=== PATIENT | male | born 2000 | race Caucasian/White ===

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

== ENCOUNTER 2022-08-11 21:04 | Emergency (ER) | payer OTHER, SELFPAY ==
[2022-08-11 21:17] VITALS: BP 114/62; PULSE 86; RESP 20; TEMP 36.9; O2SAT 99
--- NOTE | 2022-08-11 23:00 | ED.GENADULT ---
HPI - General Adult General Chief complaint: Allergic Reaction Stated complaint: facial numbness Time Seen by Provider: 08/11/22 22:44 History of Present Illness HPI narrative: Patient is a 22-year-old gentleman who presents the emergency department with chief complaint of facial numbness. The patient reports that he ate sushi and shrimp earlier this evening had a test that he had to turn and and some homework he had to turn down the patient states he took a nap woke up noticed he was breathing fast and then had numbness around his face and mouth the patient states the fingers tip started getting numb while he was breathing fast. The patient noted the symptoms would resolve as he slowed his breathing down. Patient states that currently his symptoms have resolved and is back to normal. Related Data Home Medications Medication Instructions Recorded Confirmed No Home Medications 08/11/22 08/11/22 Allergies Allergy/AdvReac Type Severity Reaction Status Date / Time No Known Allergies Allergy Verified 08/11/22 21:21 Review of Systems Review of Systems: A 10 system review of systems was completed on the patient and is negative except for what is stated in the HPI. Nursing and ancillary documentation was reviewed. [facility] Social History Social History Smoking status: Never smoker Alcohol intake: never Substance use: never Exam Narrative: GENERAL: Well-appearing, well-nourished, and in no acute distress. HEAD: Normocephalic, atraumatic. EYES: PERRLA and EOMI. ENT: Nares clear, no rhinorrhea or epistaxis. Mucous membranes moist. NECK: Supple. CHEST: Clear to auscultation. No respiratory distress. HEART: Regular rate and rhythm. No murmur heard. Normal peripheral pulses. ABDOMEN: Soft, nontender, nondistended, normal active bowel sounds. EXTREMITIES: Normal range of motion. No edema. SKIN: Warm, dry, no rash. NEURO: No focal deficits. Alert and oriented x3. 5-5 strength in all extremities. No facial droop no decrease in sensation GCS 15 PSYCH: Normal mood and affect. Course Vital Signs Vital signs: Vital Signs Temperature 36.9 C 08/11/22 21:17 Pulse Rate 86 08/11/22 21:17 Respiratory Rate 20 08/11/22 21:17 Blood Pressure 114/62 08/11/22 21:17 Pulse Oximetry 99 08/11/22 21:17 Oxygen Delivery Room Air 08/11/22 21:17 Temperature 36.9 C 08/11/22 21:17 Pulse Rate 86 08/11/22 21:17 Respiratory Rate 20 08/11/22 21:17 Blood Pressure 114/62 08/11/22 21:17 Pulse Oximetry 99 08/11/22 21:17 Oxygen Delivery Room Air 08/11/22 22:37 Medical Decision Making MDM Narrative Medical decision making narrative: Patient is currently asymptomatic. Symptoms were most likely related to hyperventilation as the patient was breathing fast when he had the symptoms and describes not a true focal neurological deficit but more of a global paresthesia It was discussed with the patient that the patient with his resolved symptoms currently would not qualify for thrombolytic therapy if this was a stroke and the patient currently has no deficits. Vital Signs Vital Signs: Vital Signs Temperature 36.9 C 08/11/22 21:17 Pulse Rate 86 08/11/22 21:17 Respiratory Rate 20 08/11/22 21:17 Blood Pressure 114/62 08/11/22 21:17 Pulse Oximetry 99 08/11/22 21:17 Oxygen Delivery Room Air 08/11/22 21:17 Temperature 36.9 C 08/11/22 21:17 Pulse Rate 86 08/11/22 21:17 Respiratory Rate 20 08/11/22 21:17 Blood Pressure 114/62 08/11/22 21:17 Pulse Oximetry 99 08/11/22 21:17 Oxygen Delivery Room Air 08/11/22 22:37 Discharge Plan Discharge Clinical Impression: Complaint of paresthesia Patient Disposition: Home, Self-Care Condition: Stable Instructions: Antibiotic Form, Paresthesia (ED) Prescriptions: No Action No Home Medications Follow-up/Referrals: Hakan Retana
== END 2022-08-11 23:23 | disposition home or self-care (01) ==
PROVIDERS: Emergency Provider Emergency Medicine; PCP Pediatrics
DX: R20.2 Paresthesia of skin (principal)
CPT/HCPCS: 99283

== ENCOUNTER → 2023-01-15 16:45 | Outpatient (CLI) | payer OTHER, SELFPAY ==
--- NOTE | ~2023-01-15 | XR_ITS ---
EXAMINATION: XR chest 2V Exam Date/Time: 01/15/2023 16:45 CDT HISTORY: chest pain Comparison: None. RESULT: Lines, tubes, and devices: None. Lungs and pleura: Clear. Cardiomediastinal silhouette: Normal. Other: No acute osseous or upper abdominal finding. IMPRESSION: No acute cardiopulmonary process. Reviewed, dictated and finalized at location [facility].
== END ==
PROVIDERS: PCP Nurse Practitioner Family; Visit Provider Nurse Practitioner Family
DX: R07.9 Chest pain, unspecified (principal)
CPT/HCPCS: 71046

== ENCOUNTER 2023-03-21 09:19 | Outpatient (CLI) | payer OTHER, SELFPAY ==
--- NOTE | 2023-03-26 12:19 | WPDHOLTEREM ---
Holter/Event Monitor Holter/Event Monitor Date of procedure: 03/21/23 Holter/Event Procedure: 48 Hr Holter Monitor Indications: Cardiac arrhythmia Conclusion: 1. 48 hour holter monitor on 03/21/23. 2. Underlying rhythm is sinus rhythm. HR range 42-167 bpm; average HR 75 bpm. HR at 42 bpm was at 04:28; HR at 167 bpm was at 21:08. 3. There are 131 premature supraventricular complexes, 21 supraventricular couplets. No supraventricular tachycardia. 4. There are 2,358 premature ventricular complexes, 671 ventricular bigeminy, 136 ventricular trigeminy. No ventricular tachycardia. 5. No sinoatrial or atrioventricular blocks. No significant pauses greater than 2 seconds. 6. Patient reports symptoms of skipped beats which demonstrate sinus rhythm, HR range 71-108 bpm.
== END 2023-03-21 09:20 | disposition home or self-care (01) ==
PROVIDERS: PCP Nurse Practitioner Family; Visit Provider Nurse Practitioner Family
DX: I49.9 Cardiac arrhythmia, unspecified (principal)
CPT/HCPCS: 93225; 93226